=== PATIENT | female | born 1950 | race Caucasian/White ===

== ENCOUNTER → 2018-06-28 | Outpatient (REF) | payer MEDICARE | END | disposition home or self-care (01) | LOC: STRESS 07:15 → NUCMED 07:30 | PROVIDERS: ATTEND Internal Medicine | DX: I20.9 Angina pectoris, unspecified (principal); R07.89 Other chest pain; R01.1 Cardiac murmur, unspecified | CPT/HCPCS: A9502; J2785 ==